=== PATIENT | female | born 1970 | race Caucasian/White ===

== ENCOUNTER 2017-07-20 09:44 | Emergency (ER) | payer MEDICARE, OTHER ==
[~2017-07-20] VITALS: Ht 175.3 cm; Wt 127.0 kg
[~2017-07-20 09:44] MED LIST: CYMB60CA PO; HYDR50 PO; LACT PO; LEVE250 PO; LEVO.05 PO; LITH300 PO; NEUR600T PO; PANT20 PO; PRIL20CA PO; PROZ20CA11 PO; QUET100 PO; REME30TA2 PO
[2017-07-20 09:47] VITALS: BP 128/67; PULSE 70; RESP 12; TEMP 98.5; O2SAT 98
[2017-07-20] MEDS ORDERED: DOXYCYCLINE HYCLATE 100 MG CAP PO ONE (10:00)
[2017-07-20] MEDS ORDERED: TETANUS/DIPHTHERIA TOXOID ADULT 0.5 ML VIAL IM ONE (10:00)
[2017-07-20] MEDS ORDERED: PRIL20TA2 PO (10:00)
[2017-07-20] MEDS ORDERED: RABIES VACCINE HUMAN DIPL CELL 2.5 UNITS/ML SYRINGE IM ONE (10:00)
[2017-07-20] MEDS ORDERED: LITH300T3 PO (10:00)
[2017-07-20] MEDS ORDERED: QUET1TAB8 PO (10:00)
[2017-07-20] MEDS ORDERED: VIST50CA PO (10:00)
[2017-07-20] MEDS ORDERED: REME30TA2 PO (10:00)
[2017-07-20] MEDS ORDERED: LACTCHW3 PO (10:00)
[2017-07-20] MEDS ORDERED: PANT20 PO (10:00)
[2017-07-20] MEDS ORDERED: LEVE250 PO (10:00)
[2017-07-20] MEDS ORDERED: NEUR600T PO (10:00)
[2017-07-20] MEDS ORDERED: LEVO50TA4 PO (10:00)
[2017-07-20] MEDS ORDERED: CYMB60CA PO (10:00)
[2017-07-20] MEDS ORDERED: PROZ20CA11 PO (10:00)
[2017-07-20] MEDS ORDERED: RABIES IMMUNE GLOBULIN INJ 1,500 UNITS/10 ML VIAL IM STA (10:05)
[2017-07-20] MEDS ORDERED: oxyCODONE/ACETAMINOPHEN 5 MG/325 MG TAB PO ONE (10:15)
--- NOTE | 2017-07-20 10:27 | PD ---
HPI Chief Complaint: Bite or Sting Time Seen by Provider: 09:54 Travel History International Travel<30 days: No Contact w/Intl Traveler<30days: No Traveled to known affect area: No History of Present Illness HPI 47-year-old female presents to emergency department after a cat bite to the left hand just prior to arrival. States that she was trying to help a cat who appeared to be caught in a fence and the cat bit her multiple times in the left hand as she tried to release him. States this a feral cat that lives near her assisted living facility. Unknown immunization status of the cat. Patient states that the pain is severe, denies radiation of pain. Denies numbness, tingling. Denies fever, chills, chest pain, shortness of breath. Patient takes multiple medications for a psych history. She is allergic to penicillin. Unknown last tetanus vaccine. PFSH Past Medical History Asthma: No Blood Disorders: No Bipolar Disorder: Yes Anxiety: Yes Depression: Yes Cancer: No Cardiovascular Problems: Yes (CAD) High Cholesterol: Yes COPD: No Coronary Artery Disease: Yes Diabetes: No Diminished Hearing: No Endocrine: Yes Gastrointestinal Disorders: Yes (C/O POOR APPETITE, N/V) Genitourinary: Yes (CHRONIC KIDNEY DISEASE) Headaches: No Hepatitis: No Hiatal Hernia: No Hypertension: No Immune Disorder: No Implanted Vascular Access Dvce: No Musculoskeletal: No Neurologic: Yes (PT STATES HX OF SEIZURES) Psychiatric: Yes (Diagnostic history of schizoaffective disorder) Reproductive: No Respiratory: Yes (PNEUMONIA AND EMPHYSEMA) Pneumonia: Yes Schizophrenia: Yes Seizures: Yes Sleep Apnea: No Thyroid Disease: Yes Ulcer: Yes Tetanus Vaccination: Unknown ?: Not Menopausal: Yes : 0 Para: 0 Miscarriage: 0 : 0 Past Surgical History Abdominal Surgery: Yes (CHOLECYSTECTOMY) Cholecystectomy: Yes Endocrine Surgery: Yes (RIGHT KIDNEY BIOPSY) Oral Surgery: Yes (TONSILLECTOMY) Pacemaker: No Tonsillectomy: Yes Other Surgery: Yes (DEVIATED SEPTUM) Social History Alcohol Use: No (PT DENIES) Tobacco Use: Yes (PACK A DAY) Substance Use: Yes (PAST HX CRACK COCAINE) Allergies-Medications (Allergen,Severity, Reaction): Coded Allergies: penicillin G (Unverified Allergy, Severe, 07/20/17) Reported Meds & Prescriptions Reported Meds & Active Scripts Active Oxycodone (Oxycodone HCl) 5 Mg Cap 5 Mg PO Q6H PRN Doxycycline Hyclate 100 Mg Cap 100 Mg PO BID 7 Days Reported Quetiapine (Quetiapine Fumarate) 100 Mg Tab 100 Mg PO HS Protonix (Pantoprazole Sodium) 20 Mg Tab 20 Mg PO DAILY Prilosec (Omeprazole Magnesium) 20 Mg Tab 20 Mg PO DAILY Remeron Soltab (Mirtazapine) 30 Mg Tab 30 Mg PO HS [place] Carbonate 300 Mg Tab 300 Mg PO BID Levothyroxine (Levothyroxine Sodium) 50 Mcg Tab 50 Mcg PO DAILY Keppra (Levetiracetam) 250 Mg Tab 250 Mg PO TID Lactinex (Lactobacillus Acidophilus) 1 Chew 1 Tab CHEW BID Vistaril (Hydroxyzine Pamoate) 50 Mg Cap 50 Mg PO BID Neurontin (Gabapentin) 600 Mg Tab 600 Mg PO TID Prozac (Fluoxetine HCl) 20 Mg Cap 20 Mg PO DAILY Cymbalta DR (Duloxetine HCl) 60 Mg Capdr 120 Mg PO DAILY Review of Systems Except as stated in HPI: all other systems reviewed are Neg Physical Exam Narrative GENERAL: Well-developed well-nourished SKIN: Warm and dry. HEAD: Atraumatic. Normocephalic. EYES: Pupils equal and round. No scleral icterus. No injection or drainage. ENT: No nasal bleeding or discharge. Mucous membranes pink and moist. NECK: Trachea midline. No JVD. CARDIOVASCULAR: Regular rate and rhythm. RESPIRATORY: No accessory muscle use. Clear to auscultation. Breath sounds equal bilaterally. GASTROINTESTINAL: Abdomen soft, non-tender, nondistended. Hepatic and splenic margins not palpable. MUSCULOSKELETAL: Extremities without clubbing, cyanosis, or edema. No obvious deformities. Left hand multiple puncture wounds to distal the carpals. No obvious tendon or nerve involvement. Neurovascularly intact. Mild edema to the area.. No deformities. NEUROLOGICAL: Awake and alert. No obvious cranial nerve deficits. Motor grossly within normal limits. Five out of 5 muscle strength in the arms and legs. Normal speech. PSYCHIATRIC: Appropriate mood and affect; insight and judgment normal. Data Data Last Documented VS Vital Signs Date Time Temp Pulse Resp B/P (MAP) Pulse Ox O2 Delivery O2 Flow Rate FiO2 07/20/17 09:47 98.5 70 12 128/67 (87) 98 Orders Orders Tetanus/Diphtheria Tox Adult (Tetanus/Di (07/20/17 10:00) Doxycycline (Vibramycin) (07/20/17 10:00) Rabies Vaccine Human Cell Inj (Imovax In (07/20/17 10:00) Hand, Complete ([id number]) (07/20/17 ) Rabies Immune Globulin Inj (Hyperrab S/D (07/20/17 10:05) Oxycodone-Acetamin 5-325 Mg (Percocet (07/20/17 10:15) Wound Care (07/20/17 10:13) Ed Discharge Order (07/20/17 11:31) MDM Medical Decision Making Medical Screen Exam Complete: Yes Emergency Medical Condition: Yes Differential Diagnosis Cat Bite versus insect bite versus dog bite Narrative Course 47-year-old female presents to emergency department after a cat bite to the left hand just prior to arrival. States that she was trying to help a cat who appeared to be caught in a fence and the cat bit her multiple times in the left hand as she tried to release him. States this a feral cat that lives near her assisted living facility. Unknown immunization status of the cat. Patient states that the pain is severe, denies radiation of pain. Denies numbness, tingling. Denies fever, chills, chest pain, shortness of breath. Patient takes multiple medications for a psych history. She is allergic to penicillin. Unknown last tetanus vaccine. 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 Left hand soaked in iodine and saline. 5 injections of rabies IG into hand, approx 1.5cc total. Patient advised to return in 2 days for wound check. Return July 23, , and for continued treatment of rabies. I stressed the importance of proper follow-up for this condition. Diagnosis Primary Impression: Cat bite of hand Qualified Codes: S61.452A - Open bite of left hand, initial encounter; W55.01XA - Bitten by cat, initial encounter Referrals: Primary Care Physician Additional Instructions: Return to the ED in 2 days for a wound check. Return to the ED 07/23/17, 07/27/17, 08/03/17 for continued rabies treatment. Scripts Oxycodone (Oxycodone) 5 Mg Cap 5 MG PO Q6H Y for PAIN, #7 CAP 0 Refills Prov: Demi Meyer DO 07/20/17 Doxycycline Hyclate (Doxycycline Hyclate) 100 Mg Cap 100 MG PO BID for Infection for 7 Days, #14 CAP 0 Refills Prov: Demi Meyer DO 07/20/17 Disposition: 01 DISCHARGE HOME Condition: Stable Estefany Lovelace Jul 20, 2017 10:27
[2017-07-20] MEDS ORDERED: DOXY100C PO (10:39)
--- NOTE | 2017-07-20 10:45 | RADRPT ---
EXAM DATE/TIME: 07/20/2017 10:26 [facility] COMPARISON: HAND LEFT COMPLETE ([id number]), March 26, 2015, 11:14. INDICATIONS : Bit by cat one hour ago, multiple punctures on posterior side of left hand, metacarpals and phalanges MEDICAL HISTORY : None. SURGICAL HISTORY : None. ENCOUNTER: Initial ACUITY: 1 day PAIN SCORE: 10/10 LOCATION: Left hand FINDINGS: Three view examination of the left hand demonstrates soft tissue swelling along the dorsum of the met acarpal phalangeal joints. There is no evidence of fracture, dislocation or radiopaque foreign body. CONCLUSION: Soft tissue swelling without evidence of acute fracture or radiopaque foreign body. Bc Mehta MD on July 20, 2017 at 10:42 Board Certified Radiologist. This report was verified electronically.
[2017-07-20] MEDS ORDERED: OXYC1CAP PO (11:31)
[2017-07-21] MEDS ORDERED: PERC5TAB12 PO (09:06)
--- NOTE | 2017-07-21 09:40 | HHI.FPPN ---
Addendum to progress note ADDENDUM Reason for addendum: Additonal documentation Additional information Prescription written for Percocet tablets #[address] Love and given to the patient. Old prescription was gotten back from the patient and dispose of. Moe Adkins Jul 21, 2017 09:40
== END 2017-07-20 12:11 | disposition home or self-care (01) ==
LOC: NEPD 09:44
DX: S61.452A Open bite of left hand, initial encounter (principal); I25.10 Atherosclerotic heart disease of native coronary artery without angina pectoris; F20.9 Schizophrenia, unspecified; W55.01XA Bitten by cat, initial encounter; Z72.0 Tobacco use; Z23 Encounter for immunization
CPT/HCPCS: 73130; 90375; 90471; 90472; 90675; 90714

== ENCOUNTER 2017-07-21 08:47 | Emergency (ER) | payer MEDICARE, OTHER ==
[~2017-07-21 08:47] MED LIST changes: +DOXY100C PO; -HYDR50 PO; -LACT PO; +LACTCHW3 PO; -LEVO.05 PO; +LEVO50TA4 PO; -LITH300 PO; +LITH300T3 PO; +OXYC1CAP PO; -PRIL20CA PO; +PRIL20TA2 PO; -QUET100 PO; +QUET1TAB8 PO; +VIST50CA PO
[2017-07-21 08:49] VITALS: BP 109/79; PULSE 73; RESP 13; TEMP 97.8; O2SAT 98
[2017-07-21] MEDS ORDERED: PERC5TAB12 PO (09:06)
--- NOTE | 2017-07-21 09:19 | PD ---
HPI Chief Complaint: Medication Refill Request Time Seen by Provider: 09:12 Travel History International Travel<30 days: No Contact w/Intl Traveler<30days: No Traveled to known affect area: No History of Present Illness HPI 47-year-old female just seen yesterday for a cat bite to the left hand , return to emergency department for a problem with her Percocet prescription. Patient is currently taking doxycycline 100 mg twice a day. Patient states the cat bite seems to be improving since yesterday. She is trying to get the prescription rewritten instead of capsules 4 tablets. She otherwise has no acute medical issue. She is scheduled to return on the 12th for her second rabies series shot. She is allergic to penicillin. PFSH Past Medical History Asthma: No Blood Disorders: No Bipolar Disorder: Yes Anxiety: Yes Depression: Yes Cancer: No Cardiovascular Problems: Yes (CAD) High Cholesterol: Yes COPD: No Coronary Artery Disease: Yes Diabetes: No Diminished Hearing: No Endocrine: Yes Gastrointestinal Disorders: Yes (C/O POOR APPETITE, N/V) Genitourinary: Yes (CHRONIC KIDNEY DISEASE) Headaches: No Hepatitis: No Hiatal Hernia: No Hypertension: No Immune Disorder: No Implanted Vascular Access Dvce: No Musculoskeletal: No Neurologic: Yes (PT STATES HX OF SEIZURES) Psychiatric: Yes (Diagnostic history of schizoaffective disorder) Reproductive: No Respiratory: Yes (PNEUMONIA AND EMPHYSEMA) Pneumonia: Yes Schizophrenia: Yes Seizures: Yes Sleep Apnea: No Thyroid Disease: Yes Ulcer: Yes Menopausal: Yes : 0 Para: 0 Miscarriage: 0 : 0 Past Surgical History Abdominal Surgery: Yes (CHOLECYSTECTOMY) Cholecystectomy: Yes Endocrine Surgery: Yes (RIGHT KIDNEY BIOPSY) Oral Surgery: Yes (TONSILLECTOMY) Pacemaker: No Tonsillectomy: Yes Other Surgery: Yes (DEVIATED SEPTUM) Social History Alcohol Use: No (PT DENIES) Tobacco Use: Yes (PACK A DAY) Substance Use: Yes (PAST HX CRACK COCAINE) Allergies-Medications (Allergen,Severity, Reaction): Coded Allergies: penicillin G (Unverified Allergy, Severe, 07/20/17) Reported Meds & Prescriptions Reported Meds & Active Scripts Active Percocet (Oxycodone-Acetaminophen) 5-325 mg Tab 1 Tab PO Q6H PRN Doxycycline Hyclate 100 Mg Cap 100 Mg PO BID 7 Days Reported Quetiapine (Quetiapine Fumarate) 100 Mg Tab 100 Mg PO HS Protonix (Pantoprazole Sodium) 20 Mg Tab 20 Mg PO DAILY Prilosec (Omeprazole Magnesium) 20 Mg Tab 20 Mg PO DAILY Remeron Soltab (Mirtazapine) 30 Mg Tab 30 Mg PO HS [place] Carbonate 300 Mg Tab 300 Mg PO BID Levothyroxine (Levothyroxine Sodium) 50 Mcg Tab 50 Mcg PO DAILY Keppra (Levetiracetam) 250 Mg Tab 250 Mg PO TID Lactinex (Lactobacillus Acidophilus) 1 Chew 1 Tab CHEW BID Vistaril (Hydroxyzine Pamoate) 50 Mg Cap 50 Mg PO BID Neurontin (Gabapentin) 600 Mg Tab 600 Mg PO TID Prozac (Fluoxetine HCl) 20 Mg Cap 20 Mg PO DAILY Cymbalta DR (Duloxetine HCl) 60 Mg Capdr 120 Mg PO DAILY Review of Systems Except as stated in HPI: all other systems reviewed are Neg General / Constitutional: No: Fever Eyes: No: Visual changes HENT: No: Headaches Cardiovascular: No: Chest Pain or Discomfort Respiratory: No: Shortness of Breath Gastrointestinal: No: Abdominal Pain Genitourinary: No: Dysuria Musculoskeletal: No: Pain Skin: No Rash Neurologic: No: Weakness Psychiatric: No: Depression Endocrine: No: Polydipsia Hematologic/Lymphatic: No: Easy Bruising Physical Exam Narrative GENERAL: Patient is in no acute distress. SKIN: Warm and dry. Wound is left dressed on the left hand. No acute findings are noted. HEAD: Atraumatic. Normocephalic. EYES: Pupils equal and round. No scleral icterus. No injection or drainage. ENT: No nasal bleeding or discharge. Mucous membranes pink and moist. NECK: Trachea midline. No JVD. CARDIOVASCULAR: Regular rate and rhythm. RESPIRATORY: No accessory muscle use. Clear to auscultation. Breath sounds equal bilaterally. MUSCULOSKELETAL: Extremities without clubbing, cyanosis, or edema. No obvious deformities. 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 NEUROLOGICAL: Awake and alert. No obvious cranial nerve deficits. Motor grossly within normal limits. Five out of 5 muscle strength in the arms and legs. Normal speech. PSYCHIATRIC: Appropriate mood and affect; insight and judgment normal. Data Data Last Documented VS Vital Signs Date Time Temp Pulse Resp B/P (MAP) Pulse Ox O2 Delivery O2 Flow Rate FiO2 11/10/17 08:49 97.8 73 13 109/79 (60) 98 [facility] Medical Decision Making Medical Screen Exam Complete: Yes Emergency Medical Condition: No Differential Diagnosis Cat Bite. Need for different prescription. Hand pain. Narrative Course A medical screening exam was performed: At the time of evaluation the presenting medical condition was determined not to be of an emergent nature. The patient was given the option of receiving additional care, but declined. Patient was given options for additional community resources from which to obtain care. The Patient Has Been advised to seek medical attention for their presenting complaint. The patient has been advised to return to the ER at any time if an emergent condition develops. Scripts Oxycodone-Acetaminophen (Percocet) 5-325 mg Tab 1 TAB PO Q6H Y for PAIN, #7 TAB 0 Refills Prov: Jaron Love MD 07/21/17 Condition: Stable Moe Adkins Jul 21, 2017 09:19
== END 2017-07-21 09:42 | disposition left against medical advice (07) ==
LOC: NEPK 08:47
DX: Z76.0 Encounter for issue of repeat prescription (principal); M79.642 Pain in left hand; F31.9 Bipolar disorder, unspecified; I25.10 Atherosclerotic heart disease of native coronary artery without angina pectoris; E78.00 Pure hypercholesterolemia, unspecified; N18.9 Chronic kidney disease, unspecified; F20.9 Schizophrenia, unspecified; R56.9 Unspecified convulsions; F17.200 Nicotine dependence, unspecified, uncomplicated
CPT/HCPCS: 99283

== ENCOUNTER 2017-07-23 10:12 | Emergency (ER) | payer MEDICARE, OTHER ==
[~2017-07-23] VITALS: Ht 170.2 cm; Wt 82.0 kg
[~2017-07-23 10:12] MED LIST changes: -OXYC1CAP PO; +PERC5TAB12 PO
[2017-07-23 10:13] VITALS: BP 121/80; PULSE 79; RESP 14; TEMP 98.4; O2SAT 98
[2017-07-23] MEDS ORDERED: RABIES VACCINE HUMAN DIPL CELL 2.5 UNITS/ML SYRINGE IM ONE (12:15)
--- NOTE | 2017-07-23 12:45 | PD ---
HPI . Bite recheck Chief Complaint: Wound/Suture/Staple Re-Check Time Seen by Provider: 11:49 Travel History International Travel<30 days: No Contact w/Intl Traveler<30days: No Traveled to known affect area: No History of Present Illness HPI 47-year-old female presents emergency department for evaluation after 3 days of getting bit by cat. The patient also needs the second IM injection of rabies vaccine. The patient states she is taking her antibiotic as prescribed. The patient states the pain is getting better. The patient retains full use of the left hand. The left hand wound is healing with no localized signs or symptoms of infection. PFSH Past Medical History Asthma: No Blood Disorders: No Bipolar Disorder: Yes Anxiety: Yes Depression: Yes Cancer: No Cardiovascular Problems: Yes (CAD) High Cholesterol: Yes COPD: No Coronary Artery Disease: Yes Diabetes: No Diminished Hearing: No Endocrine: Yes Gastrointestinal Disorders: Yes (C/O POOR APPETITE, N/V) Genitourinary: Yes (CHRONIC KIDNEY DISEASE) Headaches: No Hepatitis: No Hiatal Hernia: No Hypertension: No Immune Disorder: No Implanted Vascular Access Dvce: No Musculoskeletal: No Neurologic: Yes (PT STATES HX OF SEIZURES) Psychiatric: Yes (Diagnostic history of schizoaffective disorder) Reproductive: No Respiratory: Yes (PNEUMONIA AND EMPHYSEMA) Pneumonia: Yes Schizophrenia: Yes (SCHIZOAFFECTIVE DISORDER) Seizures: Yes Sleep Apnea: No Thyroid Disease: Yes Ulcer: Yes Tetanus Vaccination: < 5 Years Influenza Vaccination: No ?: Not Menopausal: Yes : 0 Para: 0 Miscarriage: 0 : 0 Past Surgical History Abdominal Surgery: Yes (CHOLECYSTECTOMY) Cholecystectomy: Yes Endocrine Surgery: Yes (RIGHT KIDNEY BIOPSY) Oral Surgery: Yes (TONSILLECTOMY) Pacemaker: No Tonsillectomy: Yes Other Surgery: Yes (DEVIATED SEPTUM) Social History Alcohol Use: No (PT DENIES) Tobacco Use: Yes (PACK A DAY) Substance Use: Yes (PAST HX CRACK COCAINE) Allergies-Medications (Allergen,Severity, Reaction): Coded Allergies: penicillin G (Unverified Allergy, Severe, 07/23/17) Reported Meds & Prescriptions Reported Meds & Active Scripts Active Percocet (Oxycodone-Acetaminophen) 5-325 mg Tab 1 Tab PO Q6H PRN Doxycycline Hyclate 100 Mg Cap 100 Mg PO BID 7 Days Reported Quetiapine (Quetiapine Fumarate) 100 Mg Tab 100 Mg PO HS Protonix (Pantoprazole Sodium) 20 Mg Tab 20 Mg PO DAILY Prilosec (Omeprazole Magnesium) 20 Mg Tab 20 Mg PO DAILY Remeron Soltab (Mirtazapine) 30 Mg Tab 30 Mg PO HS [place] Carbonate 300 Mg Tab 300 Mg PO BID Levothyroxine (Levothyroxine Sodium) 50 Mcg Tab 50 Mcg PO DAILY Keppra (Levetiracetam) 250 Mg Tab 250 Mg PO TID Lactinex (Lactobacillus Acidophilus) 1 Chew 1 Tab PO BID Vistaril (Hydroxyzine Pamoate) 50 Mg Cap 50 Mg PO BID Neurontin (Gabapentin) 600 Mg Tab 600 Mg PO TID Prozac (Fluoxetine HCl) 20 Mg Cap 20 Mg PO DAILY Cymbalta DR (Duloxetine HCl) 60 Mg Capdr 120 Mg PO DAILY Review of Systems Except as stated in HPI: all other systems reviewed are Neg Physical Exam Narrative GENERAL: Well-nourished, well-developed 47-year-old female patient in no acute distress. Nontoxic appearing. SKIN: Multiple small puncture judge noted to the left hand with mild edema noted. HEAD: Normocephalic. Atraumatic. EYES: No scleral icterus. No injection or drainage. NECK: Supple, trachea midline. No JVD or lymphadenopathy. CARDIOVASCULAR: Regular rate and rhythm without murmurs, gallops, or rubs. RESPIRATORY: Breath sounds equal bilaterally. No accessory muscle use. GASTROINTESTINAL: Abdomen soft, non-tender, nondistended. MUSCULOSKELETAL: No cyanosis, or edema. BACK: Nontender without obvious deformity. No CVA tenderness. Data Data Last Documented VS Vital Signs Date Time Temp Pulse Resp B/P (MAP) Pulse Ox O2 Delivery O2 Flow Rate FiO2 07/23/17 12:48 07/23/17 10:13 98.4 79 14 98 Orders Orders Rabies Vaccine Human Cell Inj (Imovax In (07/23/17 12:15) Wound Care (07/23/17 12:42) Ed Discharge Order (07/23/17 12:42) [facility] Medical Decision Making Medical Screen Exam Complete: Yes Emergency Medical Condition: Yes Differential Diagnosis Differential diagnoses include but not limited to cellulitis, animal bite, healing wound, rabies prophylaxis Narrative Course 47-year-old female presents emergency department for recheck of a cat bite that occurred 3 days ago. Patient was instructed to return for 2nd rabies IM injection. Patient states the pain in her hand is improving. Patient denies any fever or chills. Patient states she is taking her antibiotics as prescribed. Wound care performed to the left hand. Second dose of rabies vaccine given. Patient instructed to return in 4 days for recheck and the third dose of the rabies vaccine. Patient instructed to keep the wound clean and dry and to do daily dressing changes. Patient understands and will return in 4 days for recheck and third injection. Patient discharged home. Diagnosis Primary Impression: Cat bite of hand Qualified Codes: S61.452D - Open bite of left hand, subsequent encounter; W55.01XD - Bitten by cat, subsequent encounter Referrals: Primary Care Physician Patient Instructions: Animal Bite (ED), General Instructions Additional Instructions: Please return to emergency department if your symptoms return or worsen. Return to the emergency department in 4 days for reevaluation and rabies prophylaxis. Keep wound clean and dry. Daily dressing changes to left hand. May take Tylenol or ibuprofen as needed for pain or fever. May use ice to help reduce inflammation and swelling. 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
== END 2017-07-23 13:39 | disposition home or self-care (01) ==
LOC: NEPD 10:12
DX: S61.452D Open bite of left hand, subsequent encounter (principal); E78.00 Pure hypercholesterolemia, unspecified; E07.9 Disorder of thyroid, unspecified; F17.200 Nicotine dependence, unspecified, uncomplicated; W55.01XD Bitten by cat, subsequent encounter; Z23 Encounter for immunization; Z86.59 Personal history of other mental and behavioral disorders; Z86.79 Personal history of other diseases of the circulatory system; Z87.19 Personal history of other diseases of the digestive system; Z87.448 Personal history of other diseases of urinary system; Z86.69 Personal history of other diseases of the nervous system and sense organs; Z87.09 Personal history of other diseases of the respiratory system
CPT/HCPCS: 90471; 90675

== ENCOUNTER 2017-07-27 09:02 | Emergency (ER) | payer MEDICARE, OTHER ==
[~2017-07-27] VITALS: Ht 170.2 cm; Wt 128.0 kg
[2017-07-27 09:03] VITALS: BP 138/78; PULSE 90; RESP 20; TEMP 97.7; O2SAT 98
[2017-07-27] MEDS ORDERED: RABIES VACCINE HUMAN DIPL CELL 2.5 UNITS/ML SYRINGE IM ONE (09:15)
--- NOTE | 2017-07-27 09:18 | PD ---
HPI . Rabies vaccine Chief Complaint: Bite or Sting Time Seen by Provider: 09:09 Travel History International Travel<30 days: No Contact w/Intl Traveler<30days: No Traveled to known affect area: No History of Present Illness HPI The patient is here for her third a series of 486 vaccination is. She was bitten on the left hand by a cat on 07/21. She has had her days 0 day 3 vaccine so far. She needs days 7 and 14. Today will be day 7. The wound on her left hand does feel well. PFSH Past Medical History Asthma: No Blood Disorders: No Bipolar Disorder: Yes Anxiety: Yes Depression: Yes Cancer: No Cardiovascular Problems: Yes (CAD) High Cholesterol: Yes COPD: No Coronary Artery Disease: Yes Diabetes: No Diminished Hearing: No Endocrine: Yes Gastrointestinal Disorders: Yes (C/O POOR APPETITE, N/V) Genitourinary: Yes (CHRONIC KIDNEY DISEASE) Headaches: No Hepatitis: No Hiatal Hernia: No Hypertension: No Immune Disorder: No Implanted Vascular Access Dvce: No Musculoskeletal: No Neurologic: Yes (PT STATES HX OF SEIZURES) Psychiatric: Yes (Diagnostic history of schizoaffective disorder) Reproductive: No Respiratory: Yes (PNEUMONIA AND EMPHYSEMA) Pneumonia: Yes Schizophrenia: Yes (SCHIZOAFFECTIVE DISORDER) Seizures: Yes Sleep Apnea: No Thyroid Disease: Yes Ulcer: Yes Tetanus Vaccination: < 5 Years Influenza Vaccination: No ?: Not Menopausal: Yes : 0 Para: 0 Miscarriage: 0 : 0 Past Surgical History Abdominal Surgery: Yes (CHOLECYSTECTOMY) Cholecystectomy: Yes Endocrine Surgery: Yes (RIGHT KIDNEY BIOPSY) Oral Surgery: Yes (TONSILLECTOMY) Pacemaker: No Tonsillectomy: Yes Other Surgery: Yes (DEVIATED SEPTUM) Social History Alcohol Use: No (PT DENIES) Tobacco Use: Yes (PACK A DAY) Substance Use: Yes (PAST HX CRACK COCAINE) Allergies-Medications (Allergen,Severity, Reaction): Coded Allergies: penicillin G (Unverified Allergy, Severe, 07/27/17) Reported Meds & Prescriptions Reported Meds & Active Scripts Active Percocet (Oxycodone-Acetaminophen) 5-325 mg Tab 1 Tab PO Q6H PRN Doxycycline Hyclate 100 Mg Cap 100 Mg PO BID 7 Days Reported Quetiapine (Quetiapine Fumarate) 100 Mg Tab 100 Mg PO HS Protonix (Pantoprazole Sodium) 20 Mg Tab 20 Mg PO DAILY Prilosec (Omeprazole Magnesium) 20 Mg Tab 20 Mg PO DAILY Remeron Soltab (Mirtazapine) 30 Mg Tab 30 Mg PO HS [place] Carbonate 300 Mg Tab 300 Mg PO BID Levothyroxine (Levothyroxine Sodium) 50 Mcg Tab 50 Mcg PO DAILY Keppra (Levetiracetam) 250 Mg Tab 250 Mg PO TID Lactinex (Lactobacillus Acidophilus) 1 Chew 1 Tab PO BID Vistaril (Hydroxyzine Pamoate) 50 Mg Cap 50 Mg PO BID Neurontin (Gabapentin) 600 Mg Tab 600 Mg PO TID Prozac (Fluoxetine HCl) 20 Mg Cap 20 Mg PO DAILY Cymbalta DR (Duloxetine HCl) 60 Mg Capdr 120 Mg PO DAILY Review of Systems Except as stated in HPI: all other systems reviewed are Neg Physical Exam Narrative GENERAL: Awake and alert and in no acute distress. SKIN: One was on her left hand are healing well. No signs of infection such as drainage or unusual redness/warmth. HEAD: Normocephalic/atraumatic. EYES: Pupils are equal. Extraocular movements are grossly NECK: Supple with full range of motion. RESPIRATORY: Nonlabored respirations. MUSCULOSKELETAL: Atraumatic. NEUROLOGICAL: Nonfocal. PSYCHIATRIC: Appropriate mood and affect. Data Data Last Documented VS Vital Signs Date Time Temp Pulse Resp B/P (MAP) Pulse Ox O2 Delivery O2 Flow Rate FiO2 07/27/17 09:03 97.7 90 20 138/78 (98) 98 Room Air Orders Orders Rabies Vaccine Human Cell Inj (Imovax In (07/27/17 09:15) MDM Medical Decision Making Medical Screen Exam Complete: Yes Emergency Medical Condition: Yes Medical Record Reviewed: Yes (this patient was originally seen on 07/21 for a cat bite on her left hand. Rabies vaccinations weren't initiated along with updating her tetanus. She was seen again on 07/23.) Differential Diagnosis Differential diagnosis of animal bite includes but is not limited to wound, wound infection, sepsis, rabies. Narrative Course This patient presents for her third in a series of 4 rabies vaccines. The vaccine has been ordered. She will be discharged home following vaccination. Diagnosis Primary Impression: Rabies, need for prophylactic vaccination against Patient Instructions: General Instructions Departure Forms: Tests/Procedures Additional Instructions: Return on 08/03 for your last vaccine. Disposition: 01 DISCHARGE HOME Condition: Stable Oeters,Zully Gladis MD Jul 27, 2017 09:18
== END 2017-07-27 10:28 | disposition home or self-care (01) ==
LOC: NEPD 09:02
DX: Z23 Encounter for immunization (principal); Z29.14 Encounter for prophylactic rabies immune globulin; F31.9 Bipolar disorder, unspecified; I25.10 Atherosclerotic heart disease of native coronary artery without angina pectoris; N18.9 Chronic kidney disease, unspecified; F41.9 Anxiety disorder, unspecified; E78.00 Pure hypercholesterolemia, unspecified; R56.9 Unspecified convulsions; F25.9 Schizoaffective disorder, unspecified
CPT/HCPCS: 90471; 90675

== ENCOUNTER 2017-08-03 09:18 | Emergency (ER) | payer MEDICARE, OTHER ==
[~2017-08-03] VITALS: Ht 170.2 cm; Wt 128.0 kg
[2017-08-03 09:21] VITALS: BP 118/65; PULSE 79; RESP 18; TEMP 97.9; O2SAT 95
--- NOTE | 2017-08-03 09:55 | PD ---
HPI Chief Complaint: Wound/Suture/Staple Re-Check Time Seen by Provider: 09:46 Travel History International Travel<30 days: No Contact w/Intl Traveler<30days: No Traveled to known affect area: No History of Present Illness HPI 47 year female presents to the emergency department for her last rabies vaccination after cat bite that occurred earlier this month. Patient states that her wounds are healing well and is happy with the results. Patient denies fever, chills and has the cat around the compound where she lives. Patient is happy to be done and is grateful for the care she has received here. PFSH Past Medical History Asthma: No Blood Disorders: No Bipolar Disorder: Yes Anxiety: Yes Depression: Yes Cancer: No Cardiovascular Problems: Yes (CAD) High Cholesterol: Yes COPD: No Coronary Artery Disease: Yes Diabetes: No Diminished Hearing: No Endocrine: Yes Gastrointestinal Disorders: Yes (C/O POOR APPETITE, N/V) Genitourinary: Yes (CHRONIC KIDNEY DISEASE) Headaches: No Hepatitis: No Hiatal Hernia: No Hypertension: No Immune Disorder: No Implanted Vascular Access Dvce: No Musculoskeletal: No Neurologic: Yes (PT STATES HX OF SEIZURES) Psychiatric: Yes (Diagnostic history of schizoaffective disorder) Reproductive: No Respiratory: Yes (PNEUMONIA AND EMPHYSEMA) Pneumonia: Yes Schizophrenia: Yes (SCHIZOAFFECTIVE DISORDER) Seizures: Yes Sleep Apnea: No Thyroid Disease: Yes Ulcer: Yes ?: Not Menopausal: Yes : 0 Para: 0 Miscarriage: 0 : 0 Past Surgical History Abdominal Surgery: Yes (CHOLECYSTECTOMY) Cholecystectomy: Yes Endocrine Surgery: Yes (RIGHT KIDNEY BIOPSY) Oral Surgery: Yes (TONSILLECTOMY) Pacemaker: No Tonsillectomy: Yes Other Surgery: Yes (DEVIATED SEPTUM) Social History Alcohol Use: No (PT DENIES) Tobacco Use: Yes (PACK A DAY) Substance Use: No (PAST HX CRACK COCAINE) Allergies-Medications (Allergen,Severity, Reaction): Coded Allergies: penicillin G (Verified Allergy, Severe, 08/03/17) Reported Meds & Prescriptions Reported Meds & Active Scripts Active Percocet (Oxycodone-Acetaminophen) 5-325 mg Tab 1 Tab PO Q6H PRN Doxycycline Hyclate 100 Mg Cap 100 Mg PO BID 7 Days Reported Quetiapine (Quetiapine Fumarate) 100 Mg Tab 100 Mg PO HS Protonix (Pantoprazole Sodium) 20 Mg Tab 20 Mg PO DAILY Prilosec (Omeprazole Magnesium) 20 Mg Tab 20 Mg PO DAILY Remeron Soltab (Mirtazapine) 30 Mg Tab 30 Mg PO HS [place] Carbonate 300 Mg Tab 300 Mg PO BID Levothyroxine (Levothyroxine Sodium) 50 Mcg Tab 50 Mcg PO DAILY Keppra (Levetiracetam) 250 Mg Tab 250 Mg PO TID Lactinex (Lactobacillus Acidophilus) 1 Chew 1 Tab PO BID Vistaril (Hydroxyzine Pamoate) 50 Mg Cap 50 Mg PO BID Neurontin (Gabapentin) 600 Mg Tab 600 Mg PO TID Prozac (Fluoxetine HCl) 20 Mg Cap 20 Mg PO DAILY Cymbalta DR (Duloxetine HCl) 60 Mg Capdr 120 Mg PO DAILY Review of Systems Except as stated in HPI: all other systems reviewed are Neg Physical Exam Narrative GENERAL: Well-nourished, well-developed patient. SKIN: Focused skin assessment warm/dry. HEAD: Normocephalic. EYES: No scleral icterus. No injection or drainage. NECK: Supple, trachea midline. No JVD or lymphadenopathy. MUSCULOSKELETAL: No cyanosis, or edema. Left hand mildly edematous, 2 healing wounds, no erythema or lymphangitic Spread. Patient has full range of motion sensation, neurovascularly intact. BACK: Nontender without obvious deformity. No CVA tenderness. PSYCHIATRIC: No delusional thought processes. No hallucinations. Data Data Last Documented VS Vital Signs Date Time Temp Pulse Resp B/P (MAP) Pulse Ox O2 Delivery O2 Flow Rate FiO2 08/03/17 09:21 97.9 79 18 118/65 (82) 95 Room Air Orders Orders Rabies Vaccine Human Cell Inj (Imovax In (08/03/17 10:00) Ed Discharge Order (08/03/17 09:49) MDM Medical Decision Making Medical Screen Exam Complete: Yes Emergency Medical Condition: Yes Differential Diagnosis Rabies versus rabies vaccination versus rabies treatment Narrative Course 47 year female presents to the emergency department for her last rabies vaccination after cat bite that occurred earlier this month. Patient states that her wounds are healing well and is happy with the results. Patient denies fever, chills and has the cat around the compound where she lives. Patient is happy to be done and is grateful for the care she has received here. Vital signs igns stable Physical exam findings left hand healing wounds Patient will receive last rabies vaccination today. Patient discharged with instruction to remain away from cats that she does not know. Diagnosis Primary Impression: Rabies, need for prophylactic vaccination against Referrals: Primary Care Physician Additional Instructions: Follow-up with her primary care physician Or symptoms persist or worsen return to the emergency department Disposition: 01 DISCHARGE HOME Condition: Stable Estefany Lovelace Aug 03, 2017 09:55
[2017-08-03] MEDS ORDERED: RABIES VACCINE HUMAN DIPL CELL 2.5 UNITS/ML SYRINGE IM ONE (10:00)
== END 2017-08-03 10:34 | disposition home or self-care (01) ==
LOC: NEPD 09:18
DX: Z29.14 Encounter for prophylactic rabies immune globulin (principal); S61.452D Open bite of left hand, subsequent encounter; E07.9 Disorder of thyroid, unspecified; E78.00 Pure hypercholesterolemia, unspecified; F17.200 Nicotine dependence, unspecified, uncomplicated; W55.01XD Bitten by cat, subsequent encounter; Z86.59 Personal history of other mental and behavioral disorders; Z86.79 Personal history of other diseases of the circulatory system; Z87.448 Personal history of other diseases of urinary system; Z86.69 Personal history of other diseases of the nervous system and sense organs; Z87.09 Personal history of other diseases of the respiratory system
CPT/HCPCS: 90471; 90472; 90675; 99282